=== PATIENT | male | born 1935 | race Caucasian/White ===

== ENCOUNTER 2016-11-30 09:59 | Emergency (ER) | payer MEDICARE, OTHER ==
--- NOTE | 2016-11-30 10:32 | UC ---
Skin Complaint HPI - HPI Summary HPI Summary: Pt c/o tender and "itchy" rash on left lateral trunk that radiates to left back.Began ~ 5-7 days ago. Pt thought his psoriasis was "flaring" - History of Current Complaint Chief Complaint: UCSkin Time Seen by Provider: 11/30/16 10:24 Stated Complaint: SKIN COMPLAINT Hx Obtained From: Patient Onset/Duration: Gradual Onset, Lasting Days Timing: Constant Onset Severity: Mild Current Severity: Mild Location: Discrete Character: Pruritus, Redness, Raised, Painful - tender Aggravating: Touch Alleviating: Nothing Associated Signs & Symptoms: Positive: Tenderness - Allergy/Home Medications Allergies/Adverse Reactions: Allergies Allergy/AdvReac Type Severity Reaction Status Date / Time Iodinated Diagnostic Agents Allergy Hives/Diff. Verified 03/04/16 09:15 Breathing/I tching Home Medications: Home Medications Cholecalciferol [Vitamin D-3] 11/30/16 [History] Review of Systems Constitutional: Negative Skin: Rash Eyes: Negative ENT: Negative Respiratory: Negative Cardiovascular: Negative Gastrointestinal: Negative Genitourinary: Negative Motor: Negative Neurovascular: Negative Musculoskeletal: Negative Neurological: Negative Psychological: Negative All Other Systems Reviewed And Are Negative: Yes PMH/Surg Hx/FS Hx/Imm Hx - Additional Past Medical History Additional PMH: psoriasis Previously Healthy: Yes Endocrine History Of: Denies: Diabetes Cardiovascular History Of: Reports: Hypertension - ON MEDS CONTROLLED PER PT. Denies: Pacemaker/ICD GI/ History Of: Denies: Renal Disease - Surgical History Surgical History: Yes Surgery Procedure, Year, and Place: GB removed 08[place]04/[place] [facility] [place] [id number] [facility] [place] [id number] [facility] [place]; back surgery 06/19/2011-[facility] 1996 - Family History Known Family History: Positive: Other - lymphoma- watchful waiting under care of Dr. Vega - Social History Lives: With Family Alcohol Use: None Alcohol Amount: Former Substance Use Type: None Smoking Status (MU): Former Smoker When Did the Patient Quit Smoking/Using Tobacco: 1984 - Immunization History Most Recent Influenza Vaccination: 06/17/16 Most Recent Tetanus Shot: unsure possibly 5 yrs ago Physical Exam Triage Information Reviewed: Yes Appearance: Well-Appearing Vital Signs: Initial Vital Signs Temp 97.9 F 11/30/16 10:07 Pulse 80 11/30/16 10:07 Resp 16 11/30/16 10:07 BP 148/79 11/30/16 10:07 Pulse Ox 97 11/30/16 10:07 Vital Signs Reviewed: Yes Eye Exam: Normal ENT: Positive: Other: - palpable firm 2cm diameter non tender lymph node left subclavian healed surgical scar in center of paplpable mass from prior biopsy Neck exam: Normal Respiratory Exam: Normal Cardiovascular Exam: Normal Musculoskeletal Exam: Normal Neurological Exam: Normal Psychological Exam: Normal Skin Exam: Other - scattered red, raised, various stages of healing vesicular rash along 7th rib to back. Course/Dx - Differential Diagnoses - Skin Complaint Differential Diagnoses: Cellulitis, Varicella Zoster - Diagnoses Provider Diagnoses: shingles Discharge - Discharge Plan Condition: Stable Disposition: HOME Prescriptions: ValACYclovir (*) [Valtrex 1 GM(*)] 1 gm PO BID #14 tab Patient Education Materials: Shingles (ED) Referrals: Emerson Lucas MD [Primary Care Provider] - Additional Instructions: Please follow up with your PCP or return to clinic. Additionally, it is noted that your blood pressure is elevated at today's visit . Please follow up with your PCP regarding these findings.
[2016-11-30 11:07] VITALS: BP 144/85
== END 2016-11-30 10:57 | disposition home or self-care (01) ==
LOC: UCEAST 09:59
DX: B02.9 Zoster without complications (principal); I10 Essential (primary) hypertension; Z87.891 Personal history of nicotine dependence
CPT/HCPCS: 99212; G0463

== ENCOUNTER 2017-05-19 10:17 | Day surgery (SDC) | payer MEDICARE, OTHER ==
[~2017-05-19 10:17] MED LIST: Buffered Lidocaine 0.9% SYRIN* 5 ML/SYR SYRINGE INTRADERM ONE; Famotidine IV* 10 MG/ML 2 ML (20 mg) IV ONE; Metoclopramide TAB* 10 MG PO ONE
[2017-05-19] MEDS ORDERED: fentaNYL* 50 MCG/ML 2 ML VIAL (100 MCG VIAL) ONE (11:21)
[2017-05-19] MEDS ORDERED: Propofol* 10 MG/ML 20 ML BTL IV PUSH ONE (11:21)
[2017-05-19] MEDS ORDERED: Midazolam* 1 MG/ML 5 ML VIAL (5 MG) ONE (11:21)
[2017-05-19] MEDS ORDERED: Famotidine IV* 10 MG/ML 2 ML (20 mg) ONE (12:02)
[2017-05-19] MEDS ORDERED: Metoclopramide TAB* 10 MG ONE (12:02)
[2017-05-19] MEDS ORDERED: Buffered Lidocaine 0.9% SYRIN* 5 ML/SYR SYRINGE ONE ×2 (12:10→12:14)
[2017-05-19] MEDS ORDERED: Bacitracin OPHTH.OINT* 3.5 GM ONE (12:26)
[2017-05-19] MEDS ORDERED: Lidocaine 1.5% EPI 1:200,000* 30 ML SDV ONE (12:27)
[2017-05-19] MEDS ORDERED: BSS OPTH.SOL* BTL ONE (12:27)
[2017-05-19] MEDS ORDERED: Tetracaine 0.5% OPTH.SOL 15ML* BTL ONE (12:49)
[2017-05-19 13:37] VITALS: BP 122/64
--- NOTE | 2017-05-20 00:12 | OP ---
DATE OF OPERATION: 05/19/17 - [facility] DATE OF : 31 SURGEON: Jason Wild MD SPEECH PATHOLOGIST ASSISTANT: None. ANESTHESIOLOGIST: Daniel Escoto MD PRE-OP DIAGNOSIS: Basal cell carcinoma, left lower lid. POST-OP DIAGNOSIS: Basal cell carcinoma, left lower lid. OPERATIVE PROCEDURE: Excision of basal cell carcinoma with full-thickness wedge resection and reconstruction of left lower lid. COMPLICATIONS: None. ESTIMATED BLOOD LOSS: Less than 2 cc. OPERATIVE FINDINGS: The patient was brought to the operating room. He was given a small amount of intravenous sedation. A suspicious lesion was noted near the margin on the skin of the left lower lid. This was demarcated using a marking pen at approximately 2 to 3 mm on each side of the lesion pointing to a pentagonal shape inferiorly. Approximately 1.5 cc of 1.5% lidocaine with epinephrine was injected under the lid in this area. The patient was then prepped and draped in the usual sterile fashion for ophthalmic surgery and attention was directed to the left lower lid. A Mendoza tenotomy scissor was used to cut pentagonal wedge resection in the area previously marked. Hemostasis was achieved with cauterization as needed. Approximately 1 cm lid defect was present at this point. It was decided to perform a lateral canthotomy and inferior cantholysis to release tension on the lateral aspect of the lower lid and allow for a closure with less tension. Approximately 1.5 cc of 1.5% lidocaine with epinephrine was injected into the lateral canthal angle area. A lateral canthotomy was performed with Mendoza scissors followed by inferior cantholysis. Hemostasis was again achieved with gentle cauterization. Attention was redirected to the original lid defect. Here, a 6-0 silk was placed through the lid margin at the cardenas line to approximate the wound. A subsequent 6-0 silk suture was placed anterior and posterior to this point. Interrupted 6-0 Vicryl sutures were used to close the tarsus and deeper layers of orbicularis. The skin was then closed with 6-0 silk sutures. Attention was directed now to the lateral canthal angle where one deep 6-0 Vicryl suture was used to close the deeper layers. The skin was closed with interrupted 6-0 silk. At the end of the case, the eyelid margin was smooth and the contour appeared natural. There was no undue tension on the eyelid and the patient was able to open and close his eye appropriately. There was no active bleeding. Topical bacitracin ointment was placed on the surface of the wounds and into the inferior fornix of the conjunctiva of the left eye. The patient was sent to recovery room in stable condition with postop instructions and followup appointment given. The biopsy was tagged temporarily with a 6-0 silk suture and sent to pathology lab. [id number]/[facility] #: [id number]
== END 2017-05-19 13:50 | disposition home or self-care (01) ==
LOC: OREAST 10:17
PROVIDERS: ATTEND Ophthalmology
DX: D23.12 Other benign neoplasm of skin of left eyelid, including canthus (principal); I10 Essential (primary) hypertension; J44.9 Chronic obstructive pulmonary disease, unspecified; Z85.72 Personal history of non-Hodgkin lymphomas
CPT/HCPCS: 88305; A9270-GY; J2250; J2704; J3010

== ENCOUNTER 2018-06-01 07:49 | Day surgery (SDC) | payer MEDICARE, OTHER ==
[~2018-06-01 07:49] MED LIST changes: +Acetaminophen TAB* 325 MG PO PRN; -Famotidine IV* 10 MG/ML 2 ML (20 mg) IV ONE; -Metoclopramide TAB* 10 MG PO ONE
[2018-06-01] MEDS ORDERED: fentaNYL* 50 MCG/ML 2 ML VIAL (100 MCG VIAL) ONE (08:34)
[2018-06-01] MEDS ORDERED: Lidocaine 2% PF * 5 ML VIAL ONE (08:35)
[2018-06-01 09:31] VITALS: BP 139/73
--- NOTE | 2018-06-01 09:43 | OP ---
DATE OF OPERATION: 06/01/18 [facility] DATE OF : 31 SURGEON: Dr. Jason Wild. ASSOCIATE PROFESSOR OF PHILOSOPHY: None. ANESTHESIA: Topical with intravenous sedation. PRE-OP DIAGNOSIS: Cataract, right eye. POST-OP DIAGNOSIS: Cataract, right eye. OPERATIVE PROCEDURE: Phacoemulsification and cataract extraction with posterior chamber intraocular lens implant, right eye. COMPLICATIONS: None. BLOOD LOSS: None. DESCRIPTION OF PROCEDURE: The patient was brought to the operating room and received a small amount of intravenous sedation. A drop of Tetracaine was placed in the right eye. He was prepped and draped in the usual sterile fashion for ophthalmic surgery and attention was directed to the right eye where a speculum was placed. A paracentesis was created at the 11 o'clock position and 0.1 cc of 1 percent preservative-free Lidocaine was injected into the anterior chamber followed by DisCoVisc. The eye was digitally stabilized while a 2.75 mm keratome was used to create a triplanar clear corneal incision at the 9 o'clock position. A continuous curvilinear capsulorrhexis was created with a cystotome and Utrata forceps. BSS on a cannula was used to hydrodissect the lens from the capsule. Phacoemulsification was performed in a divide-and- conquer technique to create four fragments which were removed. Residual cortical material was removed with irrigation and aspiration. DisCoVisc was used to inflate the capsular bag and an AU00T0 20.0 diopter lens was folded and inserted into the capsular bag. DisCoVisc was removed using irrigation and aspiration. BSS on a cannula was used to hydrate the corneal stroma and seal the wound. At the end of the case the pupil was round and the lens was centered. The eye was of normal pressure and the wound was water tight. The speculum was removed and topical Maxitrol ointment was placed on the surface of the eye. The eye was closed, patched and shielded and the patient was sent to the recovery room in stable condition with post operative instructions and follow-up appointment given. [id number]/[facility] #: [id number] ODIN
[2018-06-01] MEDS ORDERED: Phenylephr/Ketorolac 1%/0.3% OPH DROP BTL ONE (10:00)
[2018-06-01] MEDS ORDERED: Ketorolac 0.5% OPHTH (NF) 0.5 % 5 ML BTL ONE (10:03)
[2018-06-01] MEDS ORDERED: Tropicamide 1% OPTH.SOL* BTL ONE (10:03)
[2018-06-01] MEDS ORDERED: Phenylephrine 2.5% OPTH.SOL* 2 ML BTL ONE (10:03)
[2018-06-01] MEDS ORDERED: Tetracaine 0.5% OPTH.SOL 4 ML* 1 DROP BTL ONE (10:03)
[2018-06-01] MEDS ORDERED: Lidocaine 1%* 5 ML VIAL ONE (10:03)
[2018-06-01] MEDS ORDERED: Cyclopentolate 1% OPTH.SOL* 2 ML BTL ONE (10:03)
[2018-06-01] MEDS ORDERED: Neomycin/Polymy/Dex OPHTH.OIN* 3.5 GM ONE (10:03)
== END 2018-06-01 09:40 | disposition home or self-care (01) ==
LOC: OREAST 07:49
PROVIDERS: ATTEND Ophthalmology
DX: H25.811 Combined forms of age-related cataract, right eye (principal); I10 Essential (primary) hypertension; Z87.891 Personal history of nicotine dependence; M19.90 Unspecified osteoarthritis, unspecified site; Z85.72 Personal history of non-Hodgkin lymphomas
CPT/HCPCS: A9270-GY; C9447; J3010; V2632

== ENCOUNTER → 2018-12-01 09:41 | Day surgery (SDC) | payer MEDICARE, OTHER ==
[~2018-12-01 09:41] MED LIST changes: -Acetaminophen TAB* 325 MG PO PRN; -Buffered Lidocaine 0.9% SYRIN* 5 ML/SYR SYRINGE INTRADERM ONE; +Buffered Lidocaine 1% SYRIN* 1 ML/SYRINGE INTRADERM ONE; +Famotidine IV* 10 MG/ML 2 ML (20 mg) IV ONE; +Famotidine IV* 10 MG/ML 2 ML (20 mg) ONE; +Lactated Ringers 1000 ML Bag* 1,000 ML IV SCH; +Lidocaine 1% INJ* 10 MG/ML 30 ML SDV ONE; +Lidocaine 2% PF * 5 ML VIAL ONE; +Midazolam* 1 MG/ML 5 ML VIAL (5 MG) ONE; +Naloxone* 0.4 MG/ML 1 ML VIAL IV PRN; +Propofol* 10 MG/ML 20 ML BTL ONE; +ceFAZolin 2 GM in NS PREMIX(*) 2 GM/100 ML BAG IVPB ONE; +fentaNYL* 50 MCG/ML 2 ML VIAL (100 MCG VIAL) ONE
[2018-12-01 16:07] VITALS: BP 150/88
--- NOTE | 2018-12-01 21:07 | OP ---
CC: Sarah Vega MD * DATE OF OPERATION: 12/01/18 - [facility] DATE OF : 31 SURGEON: Sandeep Farmer MD CURB HOP: None. ANESTHESIOLOGIST: Dr. Anderson. ANESTHESIA: Local MAC. PRE-OP DIAGNOSIS: Lymphoma. PRE-OP DIAGNOSIS: Lymphoma. OPERATIVE PROCEDURE: PowerPort placement and left supraclavicular lymph node incisional biopsy. ESTIMATED BLOOD LOSS: Minimal. IV FLUID: Crystalloid. SPECIMENS: Incisional biopsy of left supraclavicular lymph node. DRAINS: None. COMPLICATIONS: None. COUNTS: Instrument, needles, sponge counts correct. DESCRIPTION OF PROCEDURE: The patient was brought to the operating room and placed on the table supine. Sequential compression devices were placed on both lower extremities. Intravenous sedation was administered. His neck and chest were prepped and draped in the usual sterile fashion. Time-out was performed. He did receive appropriate intravenous antibiotics. Local anesthetic was infiltrated for a right subclavian approach. After accessing the subclavian vein, guidewire was placed, but that could not be properly directed to the superior vena cava, seemed to go across the midline. Therefore, this was removed and an ultrasound was used to guide access to the right internal jugular vein using an anterior approach. After placing the guidewire and confirming its position in superior vena cava under fluoroscopic guidance, a pocket was created in the right upper chest. The 8-Czech catheter was then advanced using a tunneler and the catheter was brought out at the guidewire exit site in the neck. Catheter was cut from the tunneler, removing approximately 1 cm of catheter. The peel-away sheath and dilator were then advanced over the guidewire to the superior vena cava under fluoroscopy. The guidewire and dilator were removed and the catheter was then advanced. The catheter was positioned at the junction of the SVC and atrium with fluoroscopic guidance. The catheter was cut to a 27-cm length and connected to the port, which was placed into the pocket. It was accessed into and flushed easily. It was secured with 2-0 Prolene. The pocket is closed in two layers with 3-0 Vicryl and then 4-0 Monocryl. 3-0 Vicryl and 4-0 Monocryl were also used to close the counter incisions. Steri-Strips and the Tegaderm dressing were applied. The attention was then turned to the left supraclavicular lymph node, which was 8 to 10 cm across. This area was infiltrated with local anesthetic and incision was created through the previous scar. After dividing subcutaneous tissue with cautery. The lymph node was incised taking a 1-cm squared portion of the lymph node and submitting this fresh to Pathology. Hemostasis was achieved with direct pressure and uses Surgicel. The wound was then closed with two layers 3-0 Vicryl for the subcutaneous tissue and deep dermis and 4-0 Monocryl for the skin in running subcuticular fashion. Steri-Strips were applied with dry dressing. The patient tolerated this procedure well, was awakened and transferred to recovery in stable condition. [id number]/[facility] #: [id number] ODIN
== END | disposition home or self-care (01) ==
LOC: OR 09:41
PROVIDERS: ATTEND Surgery
DX: C82.11 Follicular lymphoma grade II, lymph nodes of head, face, and neck (principal); I10 Essential (primary) hypertension; Z87.891 Personal history of nicotine dependence; M19.90 Unspecified osteoarthritis, unspecified site
CPT/HCPCS: 71045; 76000; 88184; 88185; 88187; 88188; 88189; 88305; 88333; 88341; 88342; 88360; C1788; J0690; J1642; J2250; J2704; J3010

== ENCOUNTER 2021-12-16 03:06 | Observation (INO) ==
[2021-12-16 04:03] LABS: ABS Lymphocytes 0.2 10^3/ul (1.0-4.8); ABS Monocytes 0.8 10^3/ul (0-0.8); ABS Neutrophils 5.1 10^3/ul (1.5-7.7); Eosinophil % 0.3 %; Hematocrit 40 % (42-52); Hemoglobin 13.5 g/dL (14.0-18.0); Lymphocyte % 3.4 %; Mean Corpuscular HGB Conc 34 g/dL (31-36); Mean Corpuscular Hemoglobin 32 pg (27-31); Mean Corpuscular Volume 93 fL (80-94); Mean Platelet Volume 7.3 fL (7.4-10.4); Platelet Count 208 10^3/uL (150-450); Red Blood Count 4.29 10^6 /uL (4.18-5.48); Red Cell Distribution Width 14 % (10-15); White Blood Count 6.1 10^3/uL (3.5-10.8)
[2021-12-16 04:24] LABS: Albumin 3.5 g/dL (3.2-5.2); Albumin/Globulin Ratio 1.8 (1-3); Calcium 8.6 mg/dL (8.6-10.3); Globulin 1.9 g/dL (2-4); Magnesium 1.8 mg/dL (1.9-2.7); Potassium 4.2 mmol/L (3.5-5.0); Total Bilirubin 0.3 mg/dL (0.2-1.0); Total Protein 5.4 g/dL (6.4-8.9); eGFR CKD-EPI 55.4 (>60)
[2021-12-16 04:39] LABS: TSH Ultra Thyroid Stim Horm 2.56 mcIU/mL (0.34-5.60)
[2021-12-16] MEDS ORDERED: NS 0.9% 50 ML 50 ML IV ONE (05:17)
[2021-12-16] MEDS ORDERED: SOTROVIMAB 500 MG VIAL 500 MG in NS 0.9% 100 ml BAG 100 ML IV ONE (05:30)
[2021-12-16 06:15] LABS: Urine Appearance Clear; Urine Bilirubin Negative (Negative); Urine Blood 1+ (Negative); Urine Color Yellow; Urine Glucose Negative (Negative); Urine Ketones Negative (Negative); Urine Nitrite Negative (Negative); Urine Protein Negative (Negative); Urine Specific Gravity 1.013 (1.002-1.030); Urine Urobilinogen Negative (Negative)
[2021-12-16 06:29] LABS: Urine Bacteria Absent (Absent); Urine Granular Casts Present (Absent); Urine Red Blood Cell Absent (Absent); Urine Squamous Epithelial Cell Present (Absent); Urine Uric Acid Crystals Present (Absent); Urine White Blood Cell 1+(6-10/hpf) (Absent)
[2021-12-16 08:13] LABS: Hematocrit 38 % (42-52); Hemoglobin 13.2 g/dL (14.0-18.0)
[2021-12-16] MEDS ORDERED: Pantoprazole VIAL 40 MG VIAL IV ONE (09:43)
[2021-12-16] MEDS ORDERED: NS 0.9% 1000 ml BAG 1,000 ML IV SCH (11:00)
[2021-12-16] MEDS ORDERED: Magnesium Sulfate IV 1GM/100ML 1 GM/100 ML BAG IV ONE (14:04)
[2021-12-17 06:30] LABS: ABS Lymphocytes 0.5 10^3/ul (1.0-4.8); ABS Monocytes 0.5 10^3/ul (0-0.8); ABS Neutrophils 2.7 10^3/ul (1.5-7.7); Eosinophil % 0.1 %; Hematocrit 38 % (42-52); Hemoglobin 12.8 g/dL (14.0-18.0); Lymphocyte % 12.9 %; Mean Corpuscular HGB Conc 34 g/dL (31-36); Mean Corpuscular Hemoglobin 32 pg (27-31); Mean Corpuscular Volume 94 fL (80-94); Mean Platelet Volume 7.2 fL (7.4-10.4); Platelet Count 178 10^3/uL (150-450); Red Blood Count 4.04 10^6 /uL (4.18-5.48); Red Cell Distribution Width 14 % (10-15); White Blood Count 3.7 10^3/uL (3.5-10.8)
[2021-12-17 06:59] LABS: CO2 Carbon Dioxide 19 mmol/L (22-32); Chloride 108 mmol/L (101-111); Sodium 138 mmol/L (135-145)
[2021-12-17 07:03] LABS: Anion Gap 11 mmol/L (2-11)
[2021-12-17 07:04] LABS: Blood Urea Nitrogen 23 mg/dL (6-24); Glucose 120 mg/dL (70-100); eGFR CKD-EPI 74.2 (>60)
[2021-12-18 06:43] VITALS: BP 146/72
[2021-12-18 07:02] LABS: ABS Lymphocytes 0.6 10^3/ul (1.0-4.8); ABS Monocytes 0.7 10^3/ul (0-0.8); ABS Neutrophils 3.7 10^3/ul (1.5-7.7); Hematocrit 38 % (42-52); Lymphocyte % 11.8 %; Mean Corpuscular HGB Conc 35 g/dL (31-36); Mean Corpuscular Hemoglobin 32 pg (27-31); Mean Corpuscular Volume 92 fL (80-94); Mean Platelet Volume 7.5 fL (7.4-10.4); Nucleated Red Blood Cells % 0.1; Platelet Count 234 10^3/uL (150-450); Red Cell Distribution Width 14 % (10-15)
[2021-12-18 07:24] LABS: Calcium 8.5 mg/dL (8.6-10.3); Potassium 4.3 mmol/L (3.5-5.0); eGFR CKD-EPI 75.1 (>60)
== END 2021-12-18 13:15 | disposition home or self-care (01) ==
LOC: ED 03:06 → EDHOLD 03:06 → MED 14:57
PROVIDERS: ADMIT Hospitalist; ATTEND Hospitalist